=== PATIENT | male | born 1965 | race Caucasian/White ===

== ENCOUNTER 2016-08-07 12:00 | Emergency (ER) | payer SELFPAY ==
[2016-08-07 12:34] VITALS: BP 126/87
--- NOTE | 2016-08-07 12:55 | UC ---
Respiratory Complaint HPI - HPI Summary HPI Summary: 51 yo male with fever/chills/myalgias /headache and cough x 4 days feels SOB at times wheezing no CP no n/v/d - History of Current Complaint Chief Complaint: UCGeneralIllness Stated Complaint: FEVER COUGH CONGESTION Time Seen by Provider: 08/07/16 12:35 Hx Obtained From: Patient Onset/Duration: Gradual Onset, Lasting Days Timing: Constant Severity Initially: Mild Severity Currently: Moderate Pain Intensity: 4 Pain Scale Used: 0-10 Numeric Character: Cough: Productive Aggravating Factors: Deep Breaths, Recumbent Position Alleviating Factors: Nothing Associated Signs And Symptoms: Positive: Dyspnea, Fever, Chills, Wheezing, Nasal Congestion, Hoarseness, Sinus Discomfort - Allergies/Home Medications Allergies/Adverse Reactions: Allergies Allergy/AdvReac Type Severity Reaction Status Date / Time No Known Allergies Allergy Verified 08/07/16 12:24 PMH/Surg Hx/FS Hx/Imm Hx Previously Healthy: Yes Respiratory History: Asthma - Surgical History Surgical History: Yes Surgery Procedure, Year, and Place: kidney stone removal x2. lithotripsy x5 , RIGHT SHOULDER, LEFT KNEE - Family History Known Family History: Positive: Cardiac Disease - Father and half of his siblings, Hypertension Negative: Diabetes - Social History Alcohol Use: Occasionally Substance Use Type: None Smoking Status (MU): Never Smoked Tobacco Have You Smoked in the Last Year: No - Immunization History Most Recent Influenza Vaccination: no recent Most Recent Tetanus Shot: up to date Review of Systems Constitutional: Fever, Chills, Fatigue Skin: Negative Eyes: Negative ENT: Nasal Discharge, Sinus Congestion Respiratory: Shortness Of Breath, Cough Cardiovascular: Negative Gastrointestinal: Negative Genitourinary: Negative Motor: Negative Neurovascular: Negative Musculoskeletal: Negative Neurological: Negative Psychological: Negative All Other Systems Reviewed And Are Negative: Yes Physical Exam Triage Information Reviewed: Yes Appearance: Well-Appearing, No Pain Distress, Well-Nourished Vital Signs: Initial Vital Signs Temp 100.6 F 08/07/16 12:29 Pulse 86 08/07/16 12:29 Resp 20 08/07/16 12:29 BP 126/87 08/07/16 12:29 Pulse Ox 98 08/07/16 12:29 Vital Signs Reviewed: Yes Eyes: Positive: Conjunctiva Clear ENT: Positive: Hearing grossly normal, TMs normal. Negative: Nasal congestion, Nasal drainage, Tonsillar swelling, Tonsillar exudate, Trismus, Muffled/hoarse voice Neck: Positive: Supple, Nontender, No Lymphadenopathy Respiratory: Positive: Lungs clear, Normal breath sounds, No respiratory distress, No accessory muscle use, Wheezing - with forced expiration Cardiovascular: Positive: RRR Bowel Sounds: Positive: Present Musculoskeletal: Positive: ROM Intact, No Edema Neurological: Positive: Alert Psychological Exam: Normal Skin Exam: Normal UC Diagnostic Evaluation - Laboratory O2 Sat by Pulse Oximetry: 98 - normal/not hypoxic - Radiology Xray Interpretation: No Acute Changes Radiology Interpretation Completed By: Radiologist Respiratory Course/Dx - Differential Dx/Diagnosis Provider Diagnoses: acute bronchitis/bronchospasm Discharge - Discharge Plan Condition: Stable Disposition: HOME Prescriptions: Albuterol HFA INHALER* [Ventolin HFA Inhaler*] 2 puff INH QID #1 mdi Amoxicillin (*) [Amoxicillin 875 MG (*)] 875 mg PO BID #20 tab Prednisone [Deltasone] 40 mg PO DAILY #10 tab Patient Education Materials: Acute Bronchitis (ED) Referrals: Aidan Sanchez MD [Primary Care Provider] - If Needed Additional Instructions: recheck in 4 days if not better recheck sooner for worsening symptoms
--- NOTE | 2016-08-07 13:19 | RAD ---
HISTORY: Fever, cough COMPARISONS: None VIEWS: 2: Frontal dual-energy and lateral views of the chest. FINDINGS: CARDIOMEDIASTINAL SILHOUETTE: The cardiomediastinal silhouette is normal. OBED: The obed are normal. PLEURA: The costophrenic angles are sharp. No pleural abnormalities are noted. LUNG PARENCHYMA: The lungs are clear. ABDOMEN: The upper abdomen is clear. There is no subphrenic gas. BONES AND SOFT TISSUES: No bone or soft tissue abnormalities are noted. OTHER: None. IMPRESSION: NO ACTIVE CARDIOPULMONARY DISEASE.
== END 2016-08-07 13:37 | disposition home or self-care (01) ==
LOC: UCEAST 12:00
DX: J20.9 Acute bronchitis, unspecified (principal)
CPT/HCPCS: 71020; 99212; G0463

== ENCOUNTER → 2018-01-24 11:38 | Day surgery (SDC) | payer BC ==
--- NOTE | 2018-01-06 08:31 | HP ---
CC: Dr. Sanchez * ADMITTING HISTORY AND PHYSICAL: DATE OF ADMISSION: 01/24/18 ADMITTING DIAGNOSIS: Left renal calculi. PROCEDURE: Shock wave lithotripsy, left renal calculi. SURGEON: Dr. Gonzalez. HISTORY OF PRESENT ILLNESS: Jesus Carbajal is a 52-year-old gentleman with a history of recurrent renal calculi. He had last undergone shockwave lithotripsy about 6-1/2 years ago and was recently evaluated and noted to have a 9-mm and a 4-mm calculus in the left kidney. PAST MEDICAL HISTORY: Significant for: 1. Renal calculi. 2. BPH. 3. Gastroesophageal reflux. MEDICATIONS: On admission: 1. Uroxatral 10 mg daily. 2. Prilosec OTC. 3. Nasacort p.r.n. ALLERGIES: No known drug allergies. REVIEW OF SYSTEMS: He is otherwise in excellent health. There is no history of diabetes mellitus or any other major systemic illness. PHYSICAL EXAMINATION GENERAL: Reveals a pleasant, healthy-appearing gentleman. VITAL SIGNS: Blood pressure is 138/86, pulse 89 per minute and regular, oxygen saturation 97% on room air. LUNGS: Clear bilaterally. CARDIOVASCULAR: Regular rate and rhythm. S1, S2. ABDOMEN: Soft without masses. IMPRESSION: A 52-year-old gentleman with 2 left renal calculi who is being brought in for shock wave lithotripsy of left renal calculi. I have discussed the procedure in detail including possible risks of bleeding, infection, incomplete fragmentation, and he appears to understand and wishes to proceed as planned. PLAN: Shock wave lithotripsy, left renal calculi. [id number]/[facility] #: [id number] MTDRaymond
[~2018-01-24 11:38] MED LIST: Buffered Lidocaine 0.9% SYRIN* 5 ML/SYR SYRINGE INTRADERM ONE; Lactated Ringers 1000 ML Bag* 1,000 ML IV SCH; Lidocaine 2% PF * 5 ML VIAL ONE; Naloxone* 0.4 MG/ML 1 ML VIAL IV PRN; Ondansetron INJ* 2 MG/ML VIAL IV PRN; Propofol* 10 MG/ML 20 ML BTL ONE; Sodium Citrate/Citric Acid* 15 ML UDC ONE; Sodium Citrate/Citric Acid* 15 ML UDC PO ONE; cefTRIAXone(*) 2 GM ADDV.VIAL IVPB ONE; fentaNYL* 50 MCG/ML 2 ML VIAL (100 MCG VIAL) IV PRN; hydrALAZINE IV* 20 MG/ML VIAL ONE
[2018-01-24 18:26] VITALS: BP 157/100
--- NOTE | 2018-01-24 23:50 | OP ---
CC: Dr. Aidan Snachez * DATE OF OPERATION: 01/24/18 - [facility] DATE OF : 69 SURGEON: Bruce Gonzalez MD ANESTHESIOLOGIST: Dr. Craig. ANESTHESIA: General. PRE-OP DIAGNOSIS: Left renal calculi. POST-OP DIAGNOSIS: Left renal calculi. OPERATIVE PROCEDURE: Shock wave lithotripsy of left renal calculi. INDICATIONS: Jesus Carbajal is a 52-year-old gentleman with a history of recurrent renal calculi. He was recently noted to have two calculi in the left kidney, and is now being brought in for shock wave lithotripsy. COMPLICATIONS: None. POSTOPERATIVE CONDITION: Stable. DESCRIPTION OF PROCEDURE: After induction of general anesthesia, the patient was placed on the lithotripsy table in supine position. There were 2 calculi in the mid to lower pole area, which were localized using fluoroscopy. Shock wave lithotripsy was commenced at a rate of 60 shocks per minute. After the initial 300 shocks, there was a pause in lithotripsy for several minutes in an effort to minimize any potential trauma to the kidney. Lithotripsy was then resumed and intermittent fluoroscopy revealed good localization and fragmentation. A total of 2400 shocks were administered. The patient tolerated the procedure satisfactorily and was transferred back to the recovery area in stable condition. [id number]/[facility] #: [id number] MTDD
== END | disposition home or self-care (01) ==
LOC: OR 11:38
PROVIDERS: ATTEND Urology
DX: N20.0 Calculus of kidney (principal); N40.0 Benign prostatic hyperplasia without lower urinary tract symptoms; K21.9 Gastro-esophageal reflux disease without esophagitis
CPT/HCPCS: 74018; A9270-GY; J0360; J0696; J2704

== ENCOUNTER 2018-01-27 22:12 | Inpatient (IN) | payer BC ==
--- NOTE | 2018-01-27 22:28 | ED ---
HPI Cardiac - HPI Summary HPI Summary: This patient is a 52 year old M brought in by ambulance with a chief complaint of elevated blood pressure since 3 days ago. Today, the pain was bad enough that he decided to come to the ED. The patient rates the pain 8/10 in severity. Patient reports MCCAULEY, nausea, vomiting, and light sensitivity. Patient denies numbness/tingling in the hands and feet, vision problems, or difficulty ambulating.3 days ago he was found to have HTN, which is abnormal for him. During a procedure he needed, they could not lower his BP and it has not gone down since. He recently acquired medication for this HTN. Today he measured his BP at 210/147. His MCCAULEY started around 19:00 tonight, and gradually became worse. It is located in the back of his head. He says he feels like he has a neck brace on. PMHX none. No PMHx migraines. SHX lives alone. Vitals in the room: HR 82, BP 167/117. - History of Current Complaint Chief Complaint: EDHypertension Stated Complaint: POSS HIGH BLOOD PRESSURE Time Seen by Provider: 01/27/18 22:21 Hx Obtained From: Patient Onset/Duration: Started Days Ago - 3 Timing: Constant Initial Severity: Severe Current Severity: Severe Pain Intensity: 8 Pain Scale Used: 0-10 Numeric Alleviating Factor(s): Nothing Associated Signs and Symptoms: Positive: Headaches, Nausea, Vomiting. Negative : Vision Changes, Numbness, Tingling - Allergy/Home Medications Allergies/Adverse Reactions: Allergies Allergy/AdvReac Type Severity Reaction Status Date / Time No Known Allergies Allergy Verified 01/24/18 12:24 Home Medications: Home Medications amLODIPine TAB* [Norvasc 5 mg TAB*] 1 tab PO DAILY 01/28/18 [History Confirmed 01/28/18] PMH/Surg Hx/FS Hx/Imm Hx Endocrine/Hematology History: Denies: Hx Diabetes, Hx Thyroid Disease Cardiovascular History: Denies: Hx Hypertension Respiratory History: Reports: Hx Asthma - HX OF IN THE PAST Denies: Hx Chronic Obstructive Pulmonary Disease (COPD) GI History: Reports: Hx Gastroesophageal Reflux Disease - ON MEDICATION FOR, Hx Ulcer - 20 YEARS AGO History: Reports: Hx Kidney Stones - HX OF AND CURRENTLY Sensory History: Reports: Hx Contacts or Glasses - GLASSES Denies: Hx Hearing Aid Opthamlomology History: Reports: Hx Contacts or Glasses - GLASSES - Surgical History Surgery Procedure, Year, and Place: kidney stone removal x2. lithotripsy x5 , RIGHT SHOULDER, LEFT KNEE Hx Anesthesia Reactions: No Infectious Disease History: Yes Infectious Disease History: Reports: Hx Shingles - many times Denies: Hx Clostridium Difficile, Hx Hepatitis, Hx Human Immunodeficiency Virus (HIV), Hx of Known/Suspected MRSA, Hx Tuberculosis, Hx Known/Suspected VRE , Hx Known/Suspected VRSA, History Other Infectious Disease, Traveled Outside the [place] in Last 30 Days - Family History Known Family History: Positive: Cardiac Disease - Father and half of his siblings, Hypertension Negative: Diabetes - Social History Alcohol Use: Weekly Alcohol Amount: 1-2 DRINKS 3-4 TIMES PER WEEK Substance Use Type: Reports: None Smoking Status (MU): Never Smoked Tobacco Have You Smoked in the Last Year: No Review of Systems Positive: Photophobia. Negative: Blurred Vision Positive: Vomiting, Nausea Negative: Decreased ROM Positive: Headache. Negative: Numbness All Other Systems Reviewed And Are Negative: Yes Physical Exam - Summary Physical Exam Summary: Appearance: Well-appearing, Well-nourished, lying in bed comfortably Skin: Warm, dry, no obvious rash Eyes: sclera anicteric, no conjunctival pallor ENT: mucous membranes moist, pharynx appears normal Neck: Supple, nontender Respiratory: Clear to auscultation, no signs of respiratory distress Cardiovascular: Normal S1, S2. No murmurs. Normal distal pulses in tibial and radial bilaterally. Hypertensive. Abdomen: Soft, nontender, normal active bowel sounds present Musculoskeletal: Normal, Strength/ROM Intact Neurological: A&Ox3, awake and alert, mentation is normal, speech is fluent and appropriate Psychiatric: affect is normal, does not appear anxious or depressed GCS: 15 Triage Information Reviewed: Yes Vital Signs On Initial Exam: Initial Vitals Temp Pulse Resp BP Pulse Ox 97.3 F 86 18 167/117 97 01/27/18 22:15 01/27/18 22:15 01/27/18 22:15 01/27/18 22:15 01/27/18 22:15 Vital Signs Reviewed: Yes Diagnostics - Vital Signs Vital Signs Temp Pulse Resp BP Pulse Ox 01/27/18 22:15 97.3 F 86 18 167/117 97 - Laboratory Result Diagrams: 01/27/18 22:36 01/27/18 22:36 Lab Statement: Any lab studies that have been ordered have been reviewed, and results considered in the medical decision making process. - CT Brain CT Interpretation Completed By: Radiologist Summary of CT Findings: No acute intracranial abnormality. ED physician has reviewed this report Head CTA CT Interpretation Completed By: Radiologist Summary of CT Findings: no acute findings. ED physician has reviewed this report - EKG 22:34 Cardiac Rate: NL - 73 bpm EKG Rhythm: Sinus Rhythm Summary of EKG Findings: P waves, QRS complex, and T waves are WNL, T waves and intervals are normal, no ischemic changes. Disposition - Course Course Of Treatment: This patient is a 52 year old M brought in by ambulance with a chief complaint of elevated blood pressure since 3 days ago. Today, the pain was bad enough that he decided to come to the ED. The patient rates the pain 8/10 in severity. Patient reports MCCAULEY, nausea, vomiting, and light sensitivity. Patient denies numbness/tingling in the hands and feet, vision problems, or difficulty ambulating. An EKG reveals NSR 73 bpm, P waves, QRS complex, and T waves are WNL, T waves and intervals are normal, no ischemic changes. Brain CT reveals No acute intracranial abnormality. Head CTA reveals no acute findings. ED physician has reviewed this radiology report. Test results with no significant abnormalities. In the ED course the patient was given Morphine, IV fluids, Iohexol, and Metoprolol. We discussed patient care with [facility] hospitalist, and they recommended admission. The patient is agreeable with this plan. - Diagnoses Provider Diagnoses: Hypertensive emergency, Severe headache - Physician Notifications Discussed Care Of Patient With: Georgina Arroyo Time Discussed With Above Provider: 00:30 Instructed by Provider To: Admit As Inpatient Discharge - Sign-Out/Discharge Documenting (check all that apply): Patient Departure - admission - Discharge Plan Condition: Fair Disposition: ADMITTED TO [facility] - Billing Disposition and Condition Condition: FAIR Disposition: Admitted to [facility] - Attestation Statements Document Initiated by Scribe: Yes Documenting Scribe: Sergio Murillo Provider For Whom Scribe is Documenting (Include Credential): Bulmaro Pelletier MD Scribe Attestation: Sergio Alexander, scribed for Bulmaro Pelletier MD on 01/28/18 at 0237. Scribe Documentation Reviewed: Yes Provider Attestation: The documentation as recorded by the scribe, Sergio Murillo accurately reflects the service I personally performed and the decisions made by me, Bulmaro Pelletier MD Status of Scribe Document: Viewed
[2018-01-27] MEDS ORDERED: Ondansetron INJ* 2 MG/ML VIAL IV ONE (22:29)
[2018-01-27] MEDS ORDERED: NS 0.9% 1000 ML* 1,000 ML IV ONE (22:29)
[2018-01-27] MEDS ORDERED: Morphine VIAL* 4 MG/ML VIAL (1 ml vial) IV ONE (22:29)
[2018-01-27 22:46] LABS: ABS Basophils 0.1 10^3/ul (0-0.2); ABS Eosinophils 0.3 10^3/ul (0-0.6); ABS Lymphocytes 2.9 10^3/ul (1.0-4.8); ABS Monocytes 0.8 10^3/ul (0-0.8); ABS Neutrophils 3.6 10^3/ul (1.5-7.7); ABS Nucleated RBC 0 10^3/ul; Eosinophil % 4.1 %; Hematocrit 45 % (42-52); Hemoglobin 15.5 g/dl (14.0-18.0); Lymphocyte % 37.7 %; Mean Corpuscular HGB Conc 34 g/dl (31-36); Mean Corpuscular Hemoglobin 29 pg (27-31); Mean Corpuscular Volume 85 fL (80-94); Mean Platelet Volume 7.8 fL (7.4-10.4); Nucleated Red Blood Cells % 0.1; Platelet Count 328 10^3/ul (150-450); Red Cell Distribution Width 13 % (10.5-15); White Blood Count 7.6 10^3/ul (3.5-10.8)
[2018-01-27 22:56] LABS: INR 0.94 (0.77-1.02)
[2018-01-27 23:02] LABS: Albumin/Globulin Ratio 1.6 (1-3); BUN/Creatinine Ratio 16.7 (8-20); Calcium 9.4 mg/dL (8.6-10.3); EGFR Non-African American 77.3 (>60); Globulin 2.5 g/dL (2-4); Potassium 3.9 mmol/L (3.5-5.0); Total Bilirubin 0.3 mg/dL (0.2-1.0); Total Protein 6.5 g/dL (6.4-8.9)
[2018-01-27] MEDS ORDERED: Iohexol 350* (CONTRAST) 500 ML MDV IV ONE (23:23)
[2018-01-27] MEDS ORDERED: Metoprolol Tartrate IV* 1 MG/ML 5 ML VIAL IV ONE (23:46)
[2018-01-28] MEDS ORDERED: Docusate CAP* 100 MG PO PRN (01:04)
[2018-01-28] MEDS ORDERED: Senna TAB PO PRN (01:04)
[2018-01-28] MEDS ORDERED: PROCHLORPERAZINE INJ 5 MG/ML 2 ML VIAL IV PRN (01:22)
[2018-01-28] MEDS ORDERED: HYDROmorphone INJ* 0.5 MG/0.5 ML SYRINGE IV SLOW PU PRN (01:22)
[2018-01-28 01:26] LABS: Magnesium 2.1 mg/dL (1.9-2.7)
[2018-01-28] MEDS ORDERED: niCARdipine 0.1MG/ML IVPREMIX* 20 MG/200 ML BAG IV SCH (02:00)
--- NOTE | 2018-01-28 03:40 | HP ---
CC: Aidan Sanchez MD * HISTORY AND PHYSICAL: DATE OF ADMISSION: 01/28/18 TIME OF EVALUATION: 0100 PRIMARY CARE PHYSICIAN: Aidan Sanchez MD CHIEF COMPLAINT: Headache, nausea, vomiting. HISTORY OF PRESENT ILLNESS: This is a 52-year-old male with the past medical history of renal calculi with a recent lithotripsy procedure done by Dr. Gonzalez on 01/24/18. During the procedure, they noted his blood pressure was elevated. They were having a hard time getting it back down. They recommended to see his primary care physician to get started on blood pressure medication. He went to his primary care physician and got a prescription for amlodipine 5 mg and this is a second day that he has been taking it. 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 Yesterday, 01/26/18, they evaluated him, but they could not do their full evaluation because of his blood pressure was too high. He went to see his chiropractor a month ago. He had a normal blood pressure then. He does follow Dr. Gonzalez routinely and has never had issues with elevated blood pressure in the past. Around 7 p.m. this last evening, he developed a significant posterior headache with nausea and vomiting. When he was diagnosed with hypertension this week, he did get a blood pressure cuff and his blood pressure reading at home was 241/147. At that time, he called the EMS for further evaluation. He denies any chest pain or shortness of breath. He does have nausea and vomiting. No diarrhea. No urinary symptoms. No history of significant headaches. No history of migraines. He does have photophobia and phonophobia. His headache persists, it is 4/5 currently and worse with any type of movement. In the emergency room, the patient had labs, imaging and he was given Lopressor 5 mg, 10 mg of morphine, Zofran, and referred to the hospitalist service for further evaluation. PAST MEDICAL HISTORY: 1. History of renal calculi with a recent lithotripsy procedure done on by Dr. Gonzalez. 2. BPH. 3. GERD. 4. Seasonal allergies. MEDICATIONS: 1. Uroxatral 10 mg p.o. daily. 2. Prilosec [id number]-bssylld daily. 3. Nasacort sprays daily as needed. 4. Amlodipine 5 mg p.o. daily, just started this 2 days ago. ALLERGIES: No known drug allergies. FAMILY HISTORY: Father from unknown cancer at age 80. Mother is alive at age 79, is healthy. SOCIAL HISTORY: The patient is retired. 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 No history of smoking. Occasional alcohol. No illicit drug use. Code status is full code. His brother, Juancho, is his healthcare proxy. REVIEW OF SYSTEMS: A 14-point review of systems as mentioned in the HPI, otherwise negative. PHYSICAL EXAMINATION GENERAL: In some mild discomfort. His brother is at the bedside. VITAL SIGNS: Temp 97.3, pulse rate 86, respiratory rate 18, oxygen saturation 97% on room air, and blood pressure is 167/117. HEENT: Head: Normocephalic. Pupils are equal and reactive. Unable to get a good ophthalmologic exam. Oropharynx: Mucous membranes moist. NECK: Supple. No adenopathy. RESPIRATORY: Clear to auscultation. No wheezes, rhonchi or rales. CARDIAC: Regular rate and rhythm. Soft systolic murmur heard throughout ABDOMEN: Soft, nontender, nondistended. EXTREMITIES: No clubbing, cyanosis, or edema. +1 DPs. NEUROLOGIC: Alert and oriented x3. No gross focal neurologic deficits. LABORATORY DATA: White count 7.6, hemoglobin 15.5, hematocrit 45, platelets 328. INR is 0.94. Sodium 141, potassium 3.9, chloride 105, bicarb 31, BUN 17, creatinine 1.02, glucose 110. RADIOGRAPHIC DATA: Head CT shows no acute intracranial abnormality. Head CTA: No acute findings. EKG shows normal sinus rhythm, the rate is 73. ASSESSMENT AND PLAN: This is a 52-year-old male with the past medical history of recent diagnosis of hypertension, who presents to the emergency room with headache, nausea, vomiting in the setting of elevated blood pressure. 1. Nausea, vomiting, headache and elevated blood pressure. The patient's findings are concerning for hypertensive emergency with his presentation of headache, nausea, vomiting, less likely migraine, what is questionable is that the acute onset of an elevated blood pressure. He has no other associated symptoms of chest pain, shortness of breath, or abdominal pain. Electrolytes and renal function are within normal limits. Plan: We will admit him to the ICU to have a controlled setting to bring his blood pressure down slowly and safely with a nicardipine drip. We will check a troponin and trend this and check an echocardiogram. There is concern for possibly elevated intracranial pressure, if there is no improvement in his blood pressure, this could be also pseudotumor cerebri, which would be less likely. If no improvement with his presentation despite bringing down his blood pressure, recommend consultation with Neurology. We will also get an echocardiogram in the morning. We will continue his amlodipine in the morning. 2. Chronic medical problems: Gastroesophageal reflux disease: Continue him on omeprazole. 3. Benign prostatic hyperplasia. Continue him on his Uroxatral. 4. Fluids, electrolytes and nutrition: Low-salt diet. 5. DVT prophylaxis: The patient scores moderate risk. We will place him on heparin subcu t.i.d. 6. Code status: Full code. PATIENT TIME: Greater than 50 minutes was spent doing the history and physical , more than half time spent in direct patient contact. [id number]/[facility] #: [id number] MICHELLE
[2018-01-28 04:45] LABS: ABS Basophils 0.1 10^3/ul (0-0.2); ABS Eosinophils 0.1 10^3/ul (0-0.6); ABS Lymphocytes 1.7 10^3/ul (1.0-4.8); ABS Monocytes 0.6 10^3/ul (0-0.8); ABS Neutrophils 5.9 10^3/ul (1.5-7.7); ABS Nucleated RBC 0 10^3/ul; Eosinophil % 1.1 %; Hematocrit 47 % (42-52); Hemoglobin 15.8 g/dl (14.0-18.0); Lymphocyte % 20.1 %; Mean Corpuscular HGB Conc 34 g/dl (31-36); Mean Corpuscular Hemoglobin 29 pg (27-31); Mean Corpuscular Volume 87 fL (80-94); Mean Platelet Volume 7.6 fL (7.4-10.4); Nucleated Red Blood Cells % 0.3; Platelet Count 320 10^3/ul (150-450); Red Blood Count 5.38 10^6/ul (4.00-5.40); Red Cell Distribution Width 13 % (10.5-15); White Blood Count 8.4 10^3/ul (3.5-10.8)
[2018-01-28 05:07] LABS: BUN/Creatinine Ratio 14.8 (8-20); Calcium 9.1 mg/dL (8.6-10.3); EGFR Non-African American 72.4 (>60); Potassium 4.2 mmol/L (3.5-5.0)
--- NOTE | 2018-01-28 05:49 | PN ---
Progress Note - Progress Note Date of Service: 01/28/18 Note: Patients BP has come down with nicardipene drip. Will d/c drip and start his amlodipine now. Headache persists. Will contact neurology as well for any further workup/recommendations
[2018-01-28] MEDS: Heparin VIAL(*) 5000 UNITS/ML VIAL (FIVE THOUSAND) SUBCUT SCH ×3 (06:18→22:11)
[2018-01-28] MEDS: Acetaminophen TAB* 325 MG PO PRN ×2 (08:12→12:43)
[2018-01-28] MEDS: CMCS: Alfuzosin ER (NF) 10 MG TAB.ER PO SCH (08:13)
[2018-01-28] MEDS: Ondansetron INJ* 2 MG/ML VIAL IV PRN ×2 (08:13→12:20)
[2018-01-28] MEDS: Omeprazole CAP* 20 MG PO SCH (08:19)
--- NOTE | 2018-01-28 08:57 | ECHO ---
Patient: REGLA CISNEROS [facility] Rec#: [id number] : 1965 Date: 01/28/2018 Age: 52y Height: 183 cm / 72.0 in Weight: 104 kg / 229.2 lbs Sex: M BSA: 2.26 Room#: ICU-1 Admit Date#: 01/28/2018 Type: Inpatient Referring: Irene Horne Reading: Ten Vallecillo MD Cso: Milena Shaw RDCS CC: Aidan Sanchez MD Transthoracic Echocardiogram Indication: Abnormal EKG, hypertensive urgency. BP: 122/95 HR: 82 Rhythm: NSR Findings History: HTN, asthma, COPD. Technical Comments: The study quality is fair. The study is technically limited due to the patient's history of COPD. Completed at 0815. Left Ventricle: The left ventricular chamber size is normal. Mild concentric left ventricular hypertrophy is observed. Global left ventricular wall motion and contractility are within normal limits. There is normal left ventricular systolic function. The estimated ejection fraction is 55-60%. Abnormal left ventricular diastolic function is observed. Abnormal left ventricular diastolic filling is observed, consistent with impaired relaxation. Left Atrium: The left atrium is mildly dilated. Right Ventricle: Moderator Band present. The right ventricle is mildly dilated. The right ventricular global systolic function is low normal. Right Atrium: The right atrium is mildly dilated. Aortic Valve: The aortic valve is trileaflet. The aortic valve leaflets are mildly thickened. There is a trace of aortic regurgitation. There is no evidence of aortic stenosis. Mitral Valve: The mitral valve leaflets are mildly thickened. There is a trace of mitral regurgitation. There is no evidence of mitral stenosis. Tricuspid Valve: The tricuspid valve leaflets are normal. There is trace tricuspid regurgitation. Unable to estimate the right ventricular systolic pressure. There is no tricuspid stenosis. Pulmonic Valve: The pulmonic valve appears normal. There is a trace pulmonic regurgitation. There is no pulmonic stenosis. Pericardium: There is no significant pericardial effusion. A pericardial fat pad is visualized. Aorta: There is mild dilatation of the ascending aorta. There is no dilatation of the aortic arch. The aortic root is normal in size. Pulmonary Artery: The main pulmonary artery appears normal. Venous: The venous system is not well visualized. The inferior vena cava appears normal in size. There is a greater than 50% respiratory change in the inferior vena cava dimension. Summary: There was not any prior study for comparison. Conclusions The study quality is fair. Mild concentric left ventricular hypertrophy is observed. There is normal left ventricular systolic function. The estimated ejection fraction is 55-60%. Abnormal left ventricular diastolic filling is observed, consistent with impaired relaxation. The left atrium is mildly dilated. The right ventricle is mildly dilated. There is a trace of mitral regurgitation. There is trace tricuspid regurgitation. There is mild dilatation of the ascending aorta. Measurements Name Value Normal Range RVIDd (AP) 2D 3.1 cm (0.9 - 2.6) RVDdMajor (2D) 4.6 cm (2.2 - 4.4) RAd ISD 4CH 5.1 cm (3.4 - 4.9) RA (A4C)W 4.1 cm (2.9 - 4.6) IVSd (2D) 1.1 cm (0.6 - 1) LVPWd (2D) 1.1 cm (0.6 - 1) LVIDd (2D) 4.2 cm (3.6 - 5.4) LVIDs (2D) 2.9 cm - LV FS (2D) 32 % (25 - 45) Aortic Annulus 2.3 cm (1.4 - 2.6) Ao root diameter (2D) 3.4 cm (2.1 - 3.5) Ascending Ao 3.5 cm (2.1 - 3.4) Aortic arch 1.9 cm (1.8 - 3.4) LA dimension (AP) 2D 3.8 cm (2.3 - 3.8) LAd ISD 4CH 5.7 cm (2.9 - 5.3) LA ISD 4CH W 4.2 cm (2.5 - 4.5) Name Value Normal Range LA ESV BP (A/L) index 23 ml/m2 - Name Value Normal Range MV E-wave Vmax 0.6 m/sec - MV deceleration time 141 msec - MV A-wave Vmax 0.9 m/sec - MV E:A ratio 0.7 ratio - LV septal e' Vmax 0.06 m/sec - LV lateral e' Vmax 0.06 m/sec - LV E:e' septal ratio 10 ratio - LV E:e' lateral ratio 10 ratio - Name Value Normal Range AV Vmax 1.1 m/sec - AV VTI 17 cm - AV peak gradient 5 mmHg - AV mean gradient 3 mmHg - LVOT diameter 1 cm - LVOT Vmax 16.4 m/sec - LVOT VTI 4 cm - LVOT peak gradient 2 mmHg - LUCÍA Vmax 0.7 m/sec - Name Value Normal Range IVC diameter 1.5 cm - Name Value Normal Range PV Vmax 1.3 m/sec - PV peak gradient 6 mmHg -
[2018-01-28] MEDS ORDERED: amLODIPine TAB* 5 MG PO SCH ×2 (09:00)
[2018-01-28] MEDS ORDERED: amLODIPine TAB* 5 MG PO STA (10:49)
[2018-01-28] MEDS ORDERED: Metoprolol Tartrate IV* 1 MG/ML 5 ML VIAL IV PRN (10:51)
[2018-01-28] MEDS ORDERED: hydrALAZINE IV* 20 MG/ML VIAL IV SLOW PU PRN (10:52)
[2018-01-28] MEDS ORDERED: Morphine VIAL* 4 MG/ML VIAL (1 ml vial) IV PRN (10:53)
[2018-01-28] MEDS: Metoprolol Tartrate TAB* 25 MG PO SCH (11:20)
[2018-01-28] MEDS ORDERED: Metoclopramide IV* 5 MG/ML 2 ML VIAL IV SCH (13:36)
[2018-01-28] MEDS ORDERED: hydrOXYzine HCL TAB* 50 MG PO PRN (15:18)
[2018-01-28] MEDS ORDERED: LORazepam INJ* 2 MG/ML 1 ML VIAL IV PUSH PRN ×2 (15:19→19:40)
--- NOTE | 2018-01-28 19:51 | PN ---
Subjective Date of Service: 01/28/18 Interval History: Pt seen and examined. Meds and labs reviewed. CC: MCCAULEY, nausea ROS: Denied dizziness, F/C, V, CP, SOB, increased cough, sputum production, abd pain, diarrhea, constipation, dysuria, myalgias, arthralgias, throat pain, and new skin lesions. The rest of the 14 point ROS are unremarkable. PHYSICAL EXAM: GEN APPEARANCE: Awake, not in acute distress HEENT: NC/AT, PERRLA, moist oral mucosa, (-) throat erythema NECK: Soft, supple, (-) cervical LAD, (-)JVD HEART: S1S2 WNL, RRR, No MRG CHEST: CTA, BL, GAE, No W/R/R ABD: Soft, ND/NT, NABS 4x Q EXT: No C/C/E SKIN: Warm to touch PSYCH: No active psychosis, hallucinations, depression, SI/HI Objective Active Medications: Acetaminophen (Tylenol Tab*) 650 mg PO Q4H PRN PRN Reason: FEVER/PAIN Last Admin: 01/28/18 12:43 Dose: 650 mg Alfuzosin HCl (Uroxatral (Nf)) 10 mg PO QAM YEN Last Admin: 01/28/18 08:13 Dose: 10 mg Amlodipine Besylate (Norvasc Tab*) 5 mg PO DAILY [facility] Docusate Sodium (Colace Cap*) 100 mg PO BID PRN PRN Reason: CONSTIPATION Heparin Sodium (Porcine) (Heparin Vial(*)) 5,000 units SUBCUT Q8HR YEN Last Admin: 01/28/18 15:13 Dose: 5,000 units Hydralazine HCl (Apresoline Iv*) 10 mg IV SLOW PU Q6H PRN PRN Reason: Hypertension Last Admin: 01/28/18 12:48 Dose: 10 mg Hydrochlorothiazide (Hydrodiuril Tab*) 25 mg PO DAILY [facility] Hydromorphone HCl (Dilaudid Inj*) 0.5 mg IV SLOW PU Q4H PRN PRN Reason: PAIN Last Admin: 01/28/18 08:44 Dose: 0.5 mg Hydroxyzine HCl (Atarax Tab*) 50 mg PO Q6H PRN PRN Reason: ANXIETY Last Admin: 01/28/18 16:42 Dose: 50 mg Lorazepam (Ativan Inj*) 1 mg IV PUSH Q6H PRN PRN Reason: ANXIETY Losartan Potassium (Cozaar Tab*) 100 mg PO DAILY YEN Magnesium Oxide (Magox 400 Tab*) 400 mg PO DAILY YEN Morphine Sulfate (Morphine Vial*) 1 mg IV Q4H PRN PRN Reason: PAIN Omeprazole (Prilosec Cap*) 20 mg PO 0730 YEN Last Admin: 01/28/18 08:19 Dose: 20 mg Ondansetron HCl (Zofran Inj*) 4 mg IV Q4H PRN PRN Reason: NAUSEA/VOMITING Last Admin: 01/28/18 12:20 Dose: 4 mg Prochlorperazine Edisylate (Compazine Inj*) 5 mg IV Q6H PRN PRN Reason: NAUSEA/VOMITING Last Admin: 01/28/18 08:44 Dose: 5 mg Senna (Senokot Tab*) 1 tab PO BID PRN PRN Reason: CONSTIPATION Vital Signs - 8 hr 01/28/18 01/28/18 01/28/18 12:00 12:15 12:25 Temperature 97.6 F Pulse Rate Respiratory 14 13 Rate Blood Pressure 139/103 (mmHg) O2 Sat by Pulse Oximetry 01/28/18 01/28/18 01/28/18 12:30 12:45 13:00 Temperature Pulse Rate 69 89 85 Respiratory 10 10 11 Rate Blood Pressure 155/104 159/108 163/84 (mmHg) O2 Sat by Pulse 95 97 95 Oximetry 01/28/18 01/28/18 01/28/18 13:01 13:15 13:30 Temperature Pulse Rate 76 94 85 Respiratory 7 13 9 Rate Blood Pressure 166/105 136/104 (mmHg) O2 Sat by Pulse 96 95 96 Oximetry 01/28/18 01/28/18 01/28/18 13:45 14:00 14:01 Temperature Pulse Rate 81 89 94 Respiratory 10 10 10 Rate Blood Pressure 141/94 147/93 (mmHg) O2 Sat by Pulse 95 97 Oximetry 01/28/18 01/28/18 01/28/18 14:15 14:30 14:45 Temperature Pulse Rate 92 99 Respiratory 12 13 Rate Blood Pressure 167/107 151/105 146/100 (mmHg) O2 Sat by Pulse 95 96 Oximetry 01/28/18 01/28/18 01/28/18 15:00 15:17 15:30 Temperature Pulse Rate 92 83 Respiratory 14 13 10 Rate Blood Pressure 160/103 164/109 155/108 (mmHg) O2 Sat by Pulse 97 Oximetry 01/28/18 01/28/18 01/28/18 16:00 16:05 16:30 Temperature Pulse Rate 81 83 Respiratory 14 11 10 Rate Blood Pressure 142/101 151/104 (mmHg) O2 Sat by Pulse 96 97 Oximetry 01/28/18 01/28/18 01/28/18 17:00 17:30 18:00 Temperature Pulse Rate 84 81 79 Respiratory 12 11 8 Rate Blood Pressure 161/96 157/92 141/97 (mmHg) O2 Sat by Pulse 95 97 95 Oximetry 01/28/18 01/28/18 01/28/18 18:30 19:00 19:01 Temperature Pulse Rate 84 78 80 Respiratory 14 9 10 Rate Blood Pressure 161/102 138/102 (mmHg) O2 Sat by Pulse 97 96 96 Oximetry 01/28/18 19:30 Temperature Pulse Rate 86 Respiratory 14 Rate Blood Pressure 143/98 (mmHg) O2 Sat by Pulse 97 Oximetry Oxygen Devices in Use Now: None Result Diagrams: 01/28/18 04:33 01/28/18 04:33 Microbiology and Other Data: Microbiology 01/28/18 02:15 Nasal Screen MRSA (PCR) - Final Nasal Mrsa Not Detected Assess/Plan/Problems-Billing Assessment: - Patient Problems (1) Headache Current Visit: Yes Status: Acute Code(s): R51 - HEADACHE SNOMED Code(s): 20153037 Comment: -Possibly related to uncontrolled HTN, although high seems to have MCCAULEY that seemed unrelieved by current pain meds even as it was adjusted -Some component of anxiety likely is confounding given his HAs resolved when given Hydroxyzine -Will continue watchful waiting -D/W Maximilian Velasco and Abelino and will await any further input -MRI of head was negative -Will await any further input from Dr. Guerra and consider ASA and statins if he believes the above symptoms maybe consistent with TIA (2) GERD (gastroesophageal reflux disease) Current Visit: Yes Status: Acute Code(s): K21.9 - GASTRO-ESOPHAGEAL REFLUX DISEASE WITHOUT ESOPHAGITIS SNOMED Code(s): 761853144 Comment: -Continue Omeprazole (3) Nausea Current Visit: Yes Status: Acute Code(s): R11.0 - NAUSEA SNOMED Code(s): 784912832 Comment: -Added Reglan to PRN Compazine and Ondansetron ordered (4) DVT prophylaxis Current Visit: Yes Status: Acute Code(s): WBN1781 - SNOMED Code(s): 774366494 Comment: -Continue Heparin SQq8H Status and Disposition: -As above
--- NOTE | 2018-01-28 20:27 | CONS ---
CRITICAL CARE CONSULTATION: DATE OF CONSULT: 01/28/18 REASON FOR CONSULT: Hypertension. HISTORY OF PRESENT ILLNESS: The patient is a 52-year-old white male with a past medical history of renal calculus and GERD, who had a lithotripsy for renal calculus on 01/24/18 and was noted to be hypertensive at that time. The patient subsequently went to see his primary care physician and therapy with amlodipine 5 mg was started. The patient began monitoring his own blood pressure at home and noted a reading of 241/147 - subsequently came to the ED here with complaints of headaches, dizziness, and nausea. He was then admitted for poorly controlled hypertension and has been placed on a combination of beta blockers and calcium channel blockers. Because of complaints of headache and dizziness, a CT scan and MRI of the head have been obtained and are unrevealing , and a transthoracic echocardiogram has revealed LVH with diastolic filling abnormalities. Since admission, blood pressure has been running 140 to 180 systolic and 80 to 110 diastolic. PHYSICAL EXAM: Physical exam revealed a healthy-appearing but apprehensive white male. Blood pressure at that time was 160/102, pulse was 81 and regular, respirations were 14 and nonlabored. Physical exam was mostly unremarkable except for a very soft early systolic ejection murmur. DIAGNOSTIC STUDIES/LAB DATA: Review of laboratory values revealed normal BUN and creatinine, normal lipid panel, normal liver enzymes, and no evidence of anemia. Chest x-ray was unremarkable. [employer] imaging and cardiac ECHO results as mentioned above. IMPRESSION: This condition fulfills the criteria for "hypertensive urgency", as most of the associated symptomatology is probably related to anxiety ( triggered by the home BP recording of 241/147). The presence of left ventricular hypertrophy indicates that this patient has had hypertension for more than a few weeks. The absence of renal involvement is encouraging. PLAN: Would recommend initial management with angiotensin-receptor christopher and diuretic in the AM and a calcium channel christopher in the evening; i.e., losartan 100 mg plus, hydrochlorothiazide 50 mg in the AM, and amlodipine 5 mg in the PM. Also anxiolytic therapy might be helpful (hydroxyzine seems to work in this case ). Workup for pheochromocytoma should be considered, although I think this will be a low-yield workup. CRITICAL CARE TIME: Sixty minutes. CC: Dr. Sanchez [id number]/[facility] #: [id number] [facility]ENT[facility]
[2018-01-29] MEDS: Heparin VIAL(*) 5000 UNITS/ML VIAL (FIVE THOUSAND) SUBCUT SCH ×3 (05:41→20:43)
[2018-01-29 05:59] LABS: ABS Basophils 0.1 10^3/ul (0-0.2); ABS Eosinophils 0.2 10^3/ul (0-0.6); ABS Lymphocytes 2.9 10^3/ul (1.0-4.8); ABS Nucleated RBC 0 10^3/ul; Eosinophil % 2.1 %; Hematocrit 47 % (42-52); Hemoglobin 16.1 g/dl (14.0-18.0); Lymphocyte % 31.6 %; Mean Corpuscular HGB Conc 35 g/dl (31-36); Mean Corpuscular Hemoglobin 30 pg (27-31); Mean Corpuscular Volume 86 fL (80-94); Mean Platelet Volume 7.6 fL (7.4-10.4); Nucleated Red Blood Cells % 0.1; Platelet Count 346 10^3/ul (150-450); Red Blood Count 5.45 10^6/ul (4.00-5.40); Red Cell Distribution Width 14 % (10.5-15); White Blood Count 9.1 10^3/ul (3.5-10.8)
[2018-01-29 06:19] LABS: Albumin 3.9 g/dL (3.2-5.2); Albumin/Globulin Ratio 1.5 (1-3); BUN/Creatinine Ratio 12.6 (8-20); EGFR Non-African American 64.7 (>60); Globulin 2.6 g/dL (2-4); Magnesium 2.1 mg/dL (1.9-2.7); Phosphorus 2.9 mg/dL (2.5-5.0); Potassium 3.6 mmol/L (3.5-5.0); Total Bilirubin 0.6 mg/dL (0.2-1.0); Total Protein 6.5 g/dL (6.4-8.9)
[2018-01-29] MEDS: CMCS: Alfuzosin ER (NF) 10 MG TAB.ER PO SCH (08:07)
[2018-01-29] MEDS: Hydrochlorothiazide TAB* 25 MG PO SCH (08:08)
[2018-01-29] MEDS: Omeprazole CAP* 20 MG PO SCH (08:08)
[2018-01-29] MEDS: Magnesium Oxide TAB* 400 MG PO SCH (08:08)
[2018-01-29] MEDS: Losartan TAB* 25 MG PO SCH (08:08)
[2018-01-29] MEDS ORDERED: Losartan/HCTZ 100/25 (NF) TAB PO SCH (09:00)
[2018-01-29] MEDS ORDERED: amLODIPine TAB* 5 MG PO SCH ×2 (09:00→18:00)
[2018-01-29] MEDS: Metoprolol Tartrate TAB* 25 MG PO SCH (10:03)
--- NOTE | 2018-01-29 16:12 | PN ---
Subjective Date of Service: 01/29/18 Interval History: Pt seen and examined. Meds and labs reviewed. CC: N/A ROS: Denied MCCAULEY/dizziness, F/C, N/V, CP, SOB, increased cough, sputum production , abd pain, diarrhea, constipation, dysuria, myalgias, arthralgias, throat pain , and new skin lesions. The rest of the 14 point ROS are unremarkable. PHYSICAL EXAM: GEN APPEARANCE: Awake, not in acute distress HEENT: NC/AT, PERRLA, moist oral mucosa, (-) throat erythema NECK: Soft, supple, (-) cervical LAD, (-)JVD HEART: S1S2 WNL, RRR, No MRG CHEST: CTA, BL, GAE, No W/R/R ABD: Soft, ND/NT, NABS 4x Q EXT: No C/C/E SKIN: Warm to touch PSYCH: No active psychosis, hallucinations, depression, SI/HI Objective Active Medications: Acetaminophen (Tylenol Tab*) 650 mg PO Q4H PRN PRN Reason: FEVER/PAIN Last Admin: 01/28/18 12:43 Dose: 650 mg Alfuzosin HCl (Uroxatral (Nf)) 10 mg PO QAM YEN Last Admin: 01/29/18 08:07 Dose: 10 mg Amlodipine Besylate (Norvasc Tab*) 5 mg PO 1800 YEN Docusate Sodium (Colace Cap*) 100 mg PO BID PRN PRN Reason: CONSTIPATION Heparin Sodium (Porcine) (Heparin Vial(*)) 5,000 units SUBCUT Q8HR YEN Last Admin: 01/29/18 14:28 Dose: 5,000 units Hydralazine HCl (Apresoline Iv*) 10 mg IV SLOW PU Q6H PRN PRN Reason: Hypertension Last Admin: 01/28/18 12:48 Dose: 10 mg Hydrochlorothiazide (Hydrodiuril Tab*) 25 mg PO DAILY YEN Last Admin: 01/29/18 08:08 Dose: 25 mg Hydromorphone HCl (Dilaudid Inj*) 0.5 mg IV SLOW PU Q4H PRN PRN Reason: PAIN Last Admin: 01/28/18 08:44 Dose: 0.5 mg Hydroxyzine HCl (Atarax Tab*) 50 mg PO Q6H PRN PRN Reason: ANXIETY Last Admin: 01/28/18 16:42 Dose: 50 mg Lorazepam (Ativan Inj*) 1 mg IV PUSH Q6H PRN PRN Reason: ANXIETY Losartan Potassium (Cozaar Tab*) 100 mg PO DAILY [facility] Last Admin: 01/29/18 08:08 Dose: 100 mg Magnesium Oxide (Magox 400 Tab*) 400 mg PO DAILY [facility] Last Admin: 01/29/18 08:08 Dose: 400 mg Morphine Sulfate (Morphine Vial*) 1 mg IV Q4H PRN PRN Reason: PAIN Omeprazole (Prilosec Cap*) 20 mg PO 0730 [facility] Last Admin: 01/29/18 08:08 Dose: 20 mg Ondansetron HCl (Zofran Inj*) 4 mg IV Q4H PRN PRN Reason: NAUSEA/VOMITING Last Admin: 01/28/18 12:20 Dose: 4 mg Prochlorperazine Edisylate (Compazine Inj*) 5 mg IV Q6H PRN PRN Reason: NAUSEA/VOMITING Last Admin: 01/28/18 08:44 Dose: 5 mg Senna (Senokot Tab*) 1 tab PO BID PRN PRN Reason: CONSTIPATION Vital Signs - 8 hr 01/29/18 01/29/18 01/29/18 08:30 09:00 09:01 Temperature Pulse Rate 72 94 103 Respiratory 15 14 18 Rate Blood Pressure 133/88 122/88 (mmHg) O2 Sat by Pulse 96 95 96 Oximetry 01/29/18 01/29/18 01/29/18 09:30 10:00 10:01 Temperature Pulse Rate 88 82 95 Respiratory 12 12 26 Rate Blood Pressure 133/81 121/79 (mmHg) O2 Sat by Pulse 95 95 96 Oximetry 01/29/18 01/29/18 01/29/18 12:00 14:44 15:15 Temperature 97.9 F 98.1 F 98.6 F Pulse Rate 99 85 Respiratory 16 12 Rate Blood Pressure 136/90 131/81 (mmHg) O2 Sat by Pulse 97 97 Oximetry Oxygen Devices in Use Now: None Result Diagrams: 01/29/18 05:45 01/29/18 05:45 Microbiology and Other Data: Microbiology 01/28/18 02:15 Nasal Screen MRSA (PCR) - Final Nasal Mrsa Not Detected Assess/Plan/Problems-Billing Assessment: - Patient Problems (1) Headache Current Visit: Yes Status: Acute Code(s): R51 - HEADACHE SNOMED Code(s): 80999303 Comment: -Resolved -Pts BP has improved w/addition of anxiolytics -Possibly related to uncontrolled HTN, although high seems to have MCCAULEY that seemed unrelieved by current pain meds even as it was adjusted -Some component of anxiety likely is confounding given his HAs resolved when given Hydroxyzine -Will continue watchful waiting -Continue Losartan, Amlodipine, and HCTZ -MRI of head was negative (2) GERD (gastroesophageal reflux disease) Current Visit: Yes Status: Acute Code(s): K21.9 - GASTRO-ESOPHAGEAL REFLUX DISEASE WITHOUT ESOPHAGITIS SNOMED Code(s): 965679819 Comment: -Continue Omeprazole (3) Nausea Current Visit: Yes Status: Acute Code(s): R11.0 - NAUSEA SNOMED Code(s): 765930714 Comment: -Added Reglan to PRN Compazine and Ondansetron ordered (4) DVT prophylaxis Current Visit: Yes Status: Acute Code(s): TWX8826 - SNOMED Code(s): 600829185 Comment: -Continue Heparin SQq8H Status and Disposition: -Possible D/C in AM if renal functions and BP stable
[2018-01-30 05:04] LABS: Hematocrit 49 % (42-52); Hemoglobin 16.7 g/dl (14.0-18.0); Mean Corpuscular HGB Conc 34 g/dl (31-36); Mean Corpuscular Hemoglobin 29 pg (27-31); Mean Corpuscular Volume 86 fL (80-94); Mean Platelet Volume 7.8 fL (7.4-10.4); Platelet Count 335 10^3/ul (150-450); Red Blood Count 5.68 10^6/ul (4.00-5.40); Red Cell Distribution Width 14 % (10.5-15); White Blood Count 7.5 10^3/ul (3.5-10.8)
[2018-01-30] MEDS: Heparin VIAL(*) 5000 UNITS/ML VIAL (FIVE THOUSAND) SUBCUT SCH (05:15)
[2018-01-30 05:18] LABS: BUN/Creatinine Ratio 16.3 (8-20); Calcium 9.2 mg/dL (8.6-10.3); EGFR Non-African American 62.3 (>60); Phosphorus 4.2 mg/dL (2.5-5.0); Potassium 3.6 mmol/L (3.5-5.0)
[2018-01-30 07:30] VITALS: BP 127/88
[2018-01-30] MEDS: Magnesium Oxide TAB* 400 MG PO SCH (07:43)
[2018-01-30] MEDS: Hydrochlorothiazide TAB* 25 MG PO SCH (07:44)
[2018-01-30] MEDS: Omeprazole CAP* 20 MG PO SCH (07:44)
[2018-01-30] MEDS: CMCS: Alfuzosin ER (NF) 10 MG TAB.ER PO SCH (07:44)
[2018-01-30] MEDS: Losartan TAB* 25 MG PO SCH (07:44)
--- NOTE | 2018-01-30 14:34 | DS ---
CC: Dr. Irene Horne; Dr. Bulmaro Pelletier; Dr. Aidan Sanchez * DISCHARGE SUMMARY: DATE OF ADMISSION: DATE OF DISCHARGE: 01/30/18 DISCHARGE DIAGNOSES: 1. Hypertensive urgency, resolved. 2. Anxiety. 3. Headache, likely secondary to both of the above. 4. Mild acute kidney injury, possibly due to angiotensin receptor blockers, just recently started; repeat comprehensive metabolic panel as an outpatient for primary care physician to follow. DISCHARGE MEDICATIONS: 1. Alfuzosin 10 mg p.o. q.a.m. 2. Amlodipine 5 mg p.o. daily. 3. Hydrochlorothiazide 25 mg p.o. daily. 4. Hydroxyzine 50 mg p.o. q.6 p.r.n. 5. Omeprazole 20 mg p.o. daily. 6. Tylenol 650 mg p.o. q.6 p.r.n. 7. Losartan 100 mg p.o. daily. 8. Triamcinolone 2 puffs to both nares q.p.m. HISTORY OF PRESENT ILLNESS/HOSPITAL COURSE: The patient is a 52-year-old gentleman with a past history of renal calculus and GERD, who had lithotripsy for renal calculus on 01/24/18 and was noted to be hypertensive at that time. He then subsequently saw his PCP and he was started on 5 mg of amlodipine and subsequently came to the ED with complaints of headache, dizziness, and nausea. He was initially admitted to the ICU and was titrated off of nicardipine drip. However, he was placed initially on metoprolol, as well as maximum dose of amlodipine. However, his diastolic blood pressure once again anabell, but felt not to be high enough to lead to his symptoms and hence, he was placed on antianxiety medications and p.r.n. hydroxyzine as well as p.r.n. Ativan, which improved his symptoms, as well as his blood pressure, and hence it is thought that his hypertension may have an anxiety component as well. Consultation with Dr. Roca of ICU also believed that his hypertension is also somewhat driven by his anxiety and also recommends p.r.n. antianxiety medications. However, he did change some medications by discontinuing his metoprolol and placed him instead on HCTZ as well as losartan. Unfortunately, his renal function slowly is increasing to its maximum today, prior to discharge , of 1.23. He had since been advised to repeat his blood draws by tomorrow and to discuss the results of his blood draws with his PCP, more specifically his electrolytes and renal function, to determine whether any further supplementations and titration of his losartan or its possible discontinuation can be made, but we will defer this decision to the patient's PCP, on repeat labs and subsequent reevaluation. He agrees with the above assessment and plan and the patient feels well. The patient had been advised to follow up and call his PCP within 3 days post discharge and for him to repeat blood draws, preferably on 01/31/18; given this is [place], if it is not possible due to the holiday week, he was advised to have it drawn ALTAF and discussed results with his PCP to see whether losartan an be continued, decreased or replaced. He was also reminded that since he is now on a low dose diuretic, to make sure to discuss his potassium and magnesium levels with his PCP when he gets his blood redrawn. He was advised to make sure to read all labels of all his foods and drinks that he eats /imbibes and that if there are no labels, to perform a simple Google search to determine the average sodium per serving of the food in question. If his symptoms resume or develop new ones or feel unwell for any reason, he was advised to call his PCP first. However, if the PCP cannot entertain him due to scheduling issues alone, he was advised to call [facility] if the issue is nonemergent. He was also advised to my office regarding any questions, concerns or further clarifications regarding his discharge plan and/ or prescription and to take his medications as prescribed. REVIEW OF SYSTEMS: The patient currently denies any headaches, dizziness, fevers, chills, nausea, vomiting , chest pain, shortness of breath, increased cough and/or sputum production, abdominal pain, diarrhea, constipation, and pain and/or increased frequency on urination, myalgias, arthralgias, throat pain , or new skin lesions. The rest of the 14-point review of systems is otherwise unremarkable. PHYSICAL EXAMINATION: Shows the most recent vital signs of records with blood pressure of 137/88, 97.5 degrees Fahrenheit, 81 beats per minute heart rate, 21 per minute respiratory rate, saturating at 95% on room air. General Appearance : The patient is awake, alert, and oriented x3, not in acute distress. HEENT: Normocephalic, atraumatic. PERRLA. Extraocular muscles intact. Negative for icterus. Moist oral mucosa. Negative throat erythema. Neck is soft, supple, with no cervical lymphadenopathy, no JVD. Heart: S1 and S2 within normal limits. Regular rate and rhythm. No murmurs, rubs or gallops. Chest: Clear to auscultation bilaterally. Good air entry. No wheezes, rales or rhonchi. Abdomen is soft, nondistended, nontender. Normoactive bowel sounds x4 quadrants. Extremities: No cyanosis, clubbing or edema. Psychiatric: No active psychosis, depression, suicidal or homicidal ideation. Skin is warm to touch. TIME SPENT: The total time spent evaluating the patient, reviewing pertinent data, and appropriate documentation is 55 minutes. [id number]/[facility] #: [id number] MTDD
== END 2018-01-30 11:26 | disposition home or self-care (01) | DRG 199 ==
LOC: ED 22:12 → ICU 01-28 01:04 → MEDTELE 01-29 08:42
PROVIDERS: ADMIT Pediatrics; ATTEND Student in an Organized Health Care Education/Training Program
DX: I16.0 Hypertensive urgency (principal); N17.9 Acute kidney failure, unspecified; F41.9 Anxiety disorder, unspecified; K21.9 Gastro-esophageal reflux disease without esophagitis; J45.909 Unspecified asthma, uncomplicated; N40.0 Benign prostatic hyperplasia without lower urinary tract symptoms; R11.0 Nausea; T44.5X5A Adverse effect of predominantly beta-adrenoreceptor agonists, initial encounter; Y92.239 Unspecified place in hospital as the place of occurrence of the external cause; Z87.442 Personal history of urinary calculi; Z86.19 Personal history of other infectious and parasitic diseases; Z72.89 Other problems related to lifestyle
CPT/HCPCS: 36415; 70450; 70496; 70498; 70551; 74019; 80048; 80053; 80061; 83735; 84100; 84484; 85025; 85027; 85610; 87641; 93005; 93306; 99285; A9270-GY; J0360; J0780; J1170; J1644; J2270; J2405; J2765; J3490; Q9967

== ENCOUNTER 2018-02-11 12:45 | Emergency (ER) | payer BC ==
[2018-02-11 12:51] VITALS: BP 142/87
--- NOTE | 2018-02-11 13:04 | UC ---
Respiratory Complaint HPI - HPI Summary HPI Summary: 52 yo male presents with fatigue, body aches, and headache since last night. One of his coworkers was diagnosed with the flu and he thinks he may have it. Has felt hot/cold, but has not taken his temperature. He has not taken anything OTC for his symptoms. Denies sinus symptoms, sore throat, cough, SOB, chest pain. - History of Current Complaint Chief Complaint: UCGeneralIllness Stated Complaint: SORE THROAT,COUGH Time Seen by Provider: 02/11/18 13:04 Hx Obtained From: Patient Onset/Duration: Sudden Onset Severity Initially: Moderate Severity Currently: Moderate Pain Intensity: 6 Pain Scale Used: 0-10 Numeric - Allergies/Home Medications Allergies/Adverse Reactions: Allergies Allergy/AdvReac Type Severity Reaction Status Date / Time No Known Allergies Allergy Verified 02/11/18 12:51 PMH/Surg Hx/FS Hx/Imm Hx - Additional Past Medical History Additional PMH: Urinary retention Cardiovascular History: Hypertension GI/ History: Gastroesophageal Reflux - Surgical History Surgical History: Yes Surgery Procedure, Year, and Place: kidney stone removal x2. lithotripsy x5 , RIGHT SHOULDER, LEFT KNEE, RIGHT KNEE - Family History Known Family History: Positive: Cardiac Disease - Father and half of his siblings, Hypertension Negative: Diabetes - Social History Occupation: Employed Full-time Lives: With Family Alcohol Use: Weekly Alcohol Amount: 1-2 DRINKS 3-4 TIMES PER WEEK Substance Use Type: None Smoking Status (MU): Never Smoked Tobacco Have You Smoked in the Last Year: No - Immunization History Most Recent Influenza Vaccination: 01/28/18 Most Recent Tetanus Shot: up to date Most Recent Pneumonia Vaccination: none Review of Systems All Other Systems Reviewed And Are Negative: Yes Constitutional: Positive: Fatigue, Other - Body aches Skin: Positive: Negative Eyes: Positive: Negative ENT: Positive: Negative Respiratory: Positive: Negative Cardiovascular: Positive: Negative Gastrointestinal: Positive: Negative Neurovascular: Positive: Negative Neurological: Positive: Negative Psychological: Positive: Negative Physical Exam - Summary Physical Exam Summary: GENERAL: NAD. WDWN. No pain distress. SKIN: No rashes, sores, lesions, or open wounds. HEENT: Head: AT/NC Eyes: EOM intact. Conjunctiva clear without inflammation or discharge. Ears: Hearing grossly normal. TMs intact, no bulging, erythema, or edema. Nose: Nasal mucosa pink and moist. NTTP maxillary and frontal sinus. Throat: Posterior oropharynx without exudates, erythema, or tonsillar enlargement. Uvula midline. NECK: Supple. Nontender. No lymphadenopathy. CHEST: CTAB. No r/r/w. No accessory muscle use. Breathing comfortably and in no distress. CV: RRR. Without m/r/g. Pulses intact. Cap refill <2seconds NEURO: Alert. PSYCH: Age appropriate behavior. Triage Information Reviewed: Yes Vital Signs: Initial Vital Signs Temp 98 F 02/11/18 12:48 Pulse 100 02/11/18 12:48 Resp 20 02/11/18 12:48 BP 142/87 02/11/18 12:48 Pulse Ox 97 02/11/18 12:48 Laboratory Tests 02/11/18 02/11/18 13:27 13:41 Influenza A (Rapid) Positive A Group A Strep Rapid Negative Vital Signs Reviewed: Yes UC Diagnostic Evaluation - Laboratory O2 Sat by Pulse Oximetry: 97 Respiratory Course/Dx - Course Course Of Treatment: POC flu positive. Rx for tamiflu - Differential Dx/Diagnosis Provider Diagnosis: Influenza Discharge - Sign-Out/Discharge Documenting (check all that apply): Patient Departure All imaging exams completed and their final reports reviewed: No Studies - Discharge Plan Condition: Stable Disposition: HOME Prescriptions: Oseltamivir CAP* [Tamiflu CAP*] 75 mg PO BID #10 cap Patient Education Materials: Influenza (ED) Referrals: Aidan Sanchez MD [Primary Care Provider] - Additional Instructions: If you develop a fever, shortness of breath, chest pain, new or worsening symptoms - please call your PCP or go to the ED. Your blood pressure was high at todays visit. Please see your primary provider within 4 weeks for recheck and re-evaluation. - Billing Disposition and Condition Condition: STABLE Disposition: Home
== END 2018-02-11 13:55 | disposition home or self-care (01) ==
LOC: UCEAST 12:45
DX: J11.1 Influenza due to unidentified influenza virus with other respiratory manifestations (principal); I10 Essential (primary) hypertension
CPT/HCPCS: 87651; 99212; G0463